=== PATIENT | female | born 1990 | race Caucasian/White ===

== ENCOUNTER 2018-04-29 20:15 | Inpatient (IN) | payer OTHER ==
[~2018-04-29] VITALS: Ht 157.5 cm; Wt 98.0 kg
[2018-04-29] MEDS ORDERED: PRENATAL TABLE1 EAC1 PO (23:08)
== END 2018-05-02 15:09 | disposition home or self-care (01) | DRG 807 ==
LOC: LDR 20:15 → OB/GYN 04-30 03:20
PROVIDERS: ADMIT Obstetrics & Gynecology
PROC: 4A1HXCZ Monitoring of Products of Conception, Cardiac Rate, External Approach (ICD-10-PCS; 2018-04-29)
PROC: 10E0XZZ Delivery of Products of Conception, External Approach (ICD-10-PCS; principal; 2018-04-30)
PROC: 0UQGXZZ Repair Vagina, External Approach (ICD-10-PCS; 2018-04-30)
PROC: 0W8NXZZ Division of Female Perineum, External Approach (ICD-10-PCS; 2018-04-30)
DX: O71.4 Obstetric high vaginal laceration alone (principal); Z37.0 Single live birth; Z3A.37 37 weeks gestation of pregnancy; Z22.330 Carrier of Group B streptococcus